=== PATIENT | female | born 1965 | race Caucasian/White ===

== ENCOUNTER 2018-10-01 10:49 | Emergency (ER) | payer BC ==
--- NOTE | 2018-10-01 11:05 | ED ---
GI/ HPI - HPI Summary HPI Summary: Patient is a 53 y/o F presenting to ED with complaints of lower abdominal cramping onsetting three days ago in the afternoon. She also reports increased constipation at the time. However, later in the evening, she states she had diarrhea. The following day, patient experienced constipation and abdominal cramping once more. She gave herself an enema and began to pass blood rectally with clots present. Patient states that she went to [facility] yesterday, was in waiting room for seven hours and left. She states Sx persisted this morning, decided to come to [facility]. In the room, she also reports experiencing dizziness and clamminess. Pain is described as "weights tied in me". Patient notes Hx of colonoscopy x2 last year. She states first one showed colon polyps, second nothing. PSHx of hysterectomy and removal of a fibroid that was attached to her colon. She also notes Hx of severe constipation. In the room, she rates pain 3/10. PMHx of hypothyroidism, migraines, endogenous maria ines syndrome. Nothing is noted to aggravate/alleviate Sx. Home medications and allergies are reviewed. - History of Current Complaint Chief Complaint: EDAbdPain Time Seen by Provider: 10/01/18 10:54 Stated Complaint: ABD PAIN , Hx Obtained From: Patient Onset/Duration: Started Days Ago - three days, Still Present Timing: Constant, Lasting Days - three Current Severity: Mild - 3/10 Pain Intensity: 3 Location of Pain: Other - lower abdomen Pain Characteristics: Cramping, Other: - "weights tied in me" Associated Signs and Symptoms: Positive: Dizziness, Constipation, Diarrhea, Abdominal Pain, Other: - POSITIVE - CLAMMINESS Aggravating Factor(s): Nothing Alleviating Factor(s): Nothing - Allergy/Home Medications Allergies/Adverse Reactions: Allergies Allergy/AdvReac Type Severity Reaction Status Date / Time Sulfa (Sulfonamide Allergy See Comment Verified 10/01/18 11:14 Antibiotics) Home Medications: Home Medications DULoxetine DR CAP* [Cymbalta CAP*] 20 mg PO DAILY 10/01/18 [History Confirmed ] Eletriptan 40 mg (Nf)* [Relpax (NF)] 40 mg PO DAILY PRN MDD 80 mg 10/01/18 [ History Confirmed 10/01/18] Lisinopril TAB* [Prinivil TAB 10 MG*] 10 mg PO DAILY 10/01/18 [History Confirmed 10/01/18] Thyroid,Pork [[place] Thyroid] 30 mg PO DAILY 10/01/18 [History Confirmed ] ValACYclovir (*) [Valtrex 500 mg (*)] 500 mg PO DAILY 10/01/18 [History Confirmed 10/01/18] lamoTRIgine TAB(*) [Lamictal TAB(*)] 100 mg PO BEDTIME 10/01/18 [History Confirmed 10/01/18] PMH/Surg Hx/FS Hx/Imm Hx Endocrine/Hematology History: Reports: Hx Thyroid Disease - hypothyroidism , Other Endocrine/Hematological Disorders - pituitary cyst Cardiovascular History: Reports: Hx Hypertension Respiratory History: Reports: Hx Chronic Bronchitis, Hx Pneumonia Musculoskeletal History: Reports: Hx Back Problems Sensory History: Reports: Hx Contacts or Glasses Opthamlomology History: Reports: Hx Contacts or Glasses Neurological History: Reports: Hx Headaches, Hx Migraine, Other Neuro Impairments/Disorders - lymes disease 2009 Psychiatric History: Reports: Hx Anxiety, Hx Depression - Surgical History Surgery Procedure, Year, and Place: [facility] Hx Anesthesia Reactions: No Infectious Disease History: No Infectious Disease History: Reports: History Other Infectious Disease - herpes, no current outbreak Denies: Traveled Outside the [place] in Last 30 Days - Family History Known Family History: Positive: Unknown - patient is a poor historian - Social History Alcohol Use: None Substance Use Type: Reports: None Substance Use Comment - Amount & Last Used: uses for nausea migraines Smoking Status (MU): Current Every Day Smoker Type: Cigarettes Amount Used/How Often: 1 PPD Have You Smoked in the Last Year: Yes Review of Systems Positive: Other - POSITIVE - CLAMMINESS Positive: Abdominal Pain, Diarrhea, Other - POSITIVE - CONSTIPATION Positive: other - POSITIVE - RECTAL BLEEDING WITH CLOTS Neurological: Other - POSITIVE - DIZZINESS All Other Systems Reviewed And Are Negative: Yes Physical Exam - Summary Physical Exam Summary: VITAL SIGNS: Reviewed. GENERAL: Patient is a well-developed and nourished female who is lying comfortable in the stretcher. Patient is not in any acute respiratory distress. HEAD AND FACE: No signs of trauma. No ecchymosis, hematomas or skull depressions. No sinus tenderness. EYES: PERRLA, EOMI x 2, No injected conjunctiva, no nystagmus. EARS: Hearing grossly intact. Ear canals and tympanic membranes are within normal limits. MOUTH: Oropharynx within normal limits. NECK: Supple, trachea is midline, no adenopathy, no JVD, no carotid bruit, no c- spine tenderness, neck with full ROM. CHEST: Symmetric, no tenderness at palpation LUNGS: Clear to auscultation bilaterally. No wheezing or crackles. CVS: Regular rate and rhythm, S1 and S2 present, no murmurs or gallops appreciated. ABDOMEN: Soft, significant LLQ tenderness. No signs of distention. No rebound no guarding, and no masses palpated. Bowel sounds are normal. 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 NEURO: Alert and oriented x 3. No acute neurological deficits. Speech is normal and follows commands. SKIN: Dry and warm Triage Information Reviewed: Yes Vital Signs On Initial Exam: Initial Vitals Temp Pulse Resp BP Pulse Ox 97.8 F 90 16 164/115 99 10/01/18 10:51 10/01/18 10:51 10/01/18 10:51 10/01/18 10:51 10/01/18 10:51 Vital Signs Reviewed: Yes Diagnostics - Vital Signs Vital Signs Temp Pulse Resp BP Pulse Ox 10/01/18 10:51 97.8 F 90 16 164/115 99 - Laboratory Result Diagrams: 10/01/18 11:38 10/01/18 11:38 Lab Statement: Any lab studies that have been ordered have been reviewed, and results considered in the medical decision making process. - CT CT ABD/PEL CT Interpretation Completed By: Radiologist Summary of CT Findings: IMPRESSION: There is focal wall thickening is of the descending colon. Underlying. diverticulitis should be considered. Alternatively I cannot exclude a mass in the. descending colon. There is left adrenal enlargement with a mass in the left adrenal gland measuring up to. 2.8 cm. Low density lesion in the inferior right lobe of liver measuring up to 6 mm may represent. a hemangioma. THIS REPORT WAS REVIEWED BY ED PHYSICIAN. - EKG 1116 Cardiac Rate: NL - rate of 72 BPM EKG Rhythm: Sinus Rhythm Summary of EKG Findings: EKG showed sinus rhythm with rate of 72 BPM, no ST elevation, diffuse ST abnormalities. Re-Evaluation - Re-Evaluation First Eval Re-Evaluation Time: 15:40 Change: Improved Comment: Patient reports improvement of Sx. At this time I discussed my physical exam and findings. We discussed the findings that cannot be excluding a mass and also the mass in the adrenal gland and the liver. Therefore she was recommended to follow up with the primary care physician in the next couple days. The patient understands and agrees. She was recommended to return to the emergency room if she develops any more pain, shortness of breath, nausea vomiting or any other symptom. GIGU Course/Dx - Course Assessment/Plan: Patient is a 53 y/o F presenting to ED with complaints of lower abdominal cramping onsetting three days ago in the afternoon. She also reports increased constipation at the time. However, later in the evening, she states she had diarrhea. The following day, patient experienced constipation and abdominal cramping once more. She gave herself an enema and began to pass blood rectally with clots present. Patient states that she went to [facility] yesterday, was in waiting room for seven hours and left. She states Sx persisted this morning, decided to come to [facility]. In the room, she also reports experiencing dizziness and clamminess. Pain is described as "weights tied in me ". Patient notes Hx of colonoscopy x2 last year. She states first one showed colon polyps, second nothing. PSHx of hysterectomy and removal of a fibroid that was attached to her colon. She also notes Hx of severe constipation. In the room, she rates pain 3/10. PMHx of hypothyroidism, migraines, endogenous maria ines syndrome. Nothing is noted to aggravate/alleviate Sx. Home medications and allergies are reviewed. Blood work without any significant abnormality except for an slight increase in hemoglobin and hematocrit probably due to hemoconcentration. Occult blood is negative. Abdominopelvic CT impression: There is a focal wall thickening of the descending colon. Underlying diverticulitis should be considered. Alternative, I cannot exclude a mass in the descending colon. There is a left adrenal enlargement with a mass in the left adrenal gland measuring up to 2.8 cm. Low density lesion in the inferior right lobe of of the evening measuring up to 6 mm may represent hemangioma. In the ED course the patient was given IV fluids, the patient was given ciprofloxacin and Flagyl and the symptoms improved. She declined pain medication. At this time I discussed my physical exam and findings. We discussed the findings that cannot be excluding a mass and also the mass in the adrenal gland and the liver. Therefore she was recommended to follow up with the primary care physician in the next couple days. The patient understands and agrees. She was recommended to return to the emergency room if she develops any more pain, shortness of breath, nausea vomiting or any other symptom. - Diagnoses Provider Diagnoses: Diverticulitis, Adrenal mass, Liver hemangioma Discharge - Sign-Out/Discharge Documenting (check all that apply): Patient Departure - discharge - Discharge Plan Condition: Stable Disposition: HOME Prescriptions: Ciprofloxacin TAB* [Cipro 500 MG TAB*] 500 mg PO BID #20 tab metroNIDAZOLE [Flagyl 500 MG TAB] 500 mg PO TID #30 tab Patient Education Materials: Diverticulitis (ED) Referrals: Gris Castro MD [Primary Care Provider] - 3 Days Additional Instructions: RETURN TO ED FOR NEW OR WORSENING SYMPTOMS. FOLLOW UP WITH YOUR PRIMARY CARE PHYSICIAN IN 2-3 DAYS. - Billing Disposition and Condition Condition: STABLE Disposition: Home - Attestation Statements Document Initiated by Ladarius: Yes Documenting Scribe: CIELO GUTIERREZ Provider For Whom Ladarius is Documenting (Include Credential): JANUARY GARCIA MD Scribe Attestation: CIELO Juarez scribed for JANUARY GARCIA MD on 10/02/18 at 2156. Scribe Documentation Reviewed: Yes Provider Attestation: The documentation as recorded by the CIELO mart accurately reflects the service I personally performed and the decisions made by , JANUARY GARCIA MD Status of Scribe Document: Viewed
[2018-10-01 11:52] LABS: ABS Basophils 0 10^3/ul (0-0.2); ABS Eosinophils 0.1 10^3/ul (0-0.6); ABS Lymphocytes 1.4 10^3/ul (1.0-4.8); ABS Monocytes 0.4 10^3/ul (0-0.8); ABS Nucleated RBC 0 10^3/ul; Eosinophil % 1.7 %; Hematocrit 48 % (35-47); Hemoglobin 16.3 g/dl (12.0-16.0); Mean Corpuscular HGB Conc 34 g/dl (31-36); Mean Corpuscular Hemoglobin 32 pg (27-31); Mean Corpuscular Volume 93 fL (80-97); Mean Platelet Volume 9.3 fL (7.4-10.4); Nucleated Red Blood Cells % 0.1; Platelet Count 202 10^3/ul (150-450); Red Blood Count 5.14 10^6/ul (4.00-5.40); Red Cell Distribution Width 14 % (10.5-15)
[2018-10-01] MEDS ORDERED: NS 0.9% 1000 ML* 1,000 ML IV ONE (12:08)
[2018-10-01 12:09] LABS: EGFR Non-African American 75.6 (>60)
[2018-10-01] MEDS ORDERED: Iohexol 300* (CONTRAST) 10 ML SDV IV ONE (13:38)
[2018-10-01] MEDS ORDERED: Ciprofloxacin 400MG IVPREMIX(* 400 MG/200 ML BAG IVPB ONE (15:13)
[2018-10-01] MEDS ORDERED: metroNIDAZOLE TAB* 250 MG PO ONE (15:13)
[2018-10-01 16:25] VITALS: BP 167/110
== END 2018-10-01 16:24 | disposition home or self-care (01) ==
LOC: ED 10:49
DX: K57.92 Diverticulitis of intestine, part unspecified, without perforation or abscess without bleeding (principal); E27.9 Disorder of adrenal gland, unspecified; D18.03 Hemangioma of intra-abdominal structures; E03.9 Hypothyroidism, unspecified; E24.8 Other Cushing's syndrome
CPT/HCPCS: 36415; 74177; 80053; 82150; 82272; 83605; 83690; 85025; 86140; 93005; 96361; 96374; 96375; 99283; A9270-GY; J0744; Q9967